=== PATIENT | female | born 1965 | race Caucasian/White ===

== ENCOUNTER → 2017-03-25 | Outpatient (CLI) | payer OTHER ==
[~2017-03-25] MED LIST: PHENERGAN 25MG.25 M1 PO
--- NOTE | 2017-03-25 08:57 | RADIOLOGY REPORT PS360 ---
HIP LT 2-3V W/PELVIS IF PERFOR HISTORY: LEFT HIP PAIN ORDERING PHYSICIAN: Petr Treviño MD PATIENT AGE: 51 years COMPARISON: 12/21/2015 FINDINGS: No fracture or dislocation is evident. No significant degenerative change. No lytic or blastic change. Unremarkable soft tissues. Minimal hypertrophic changes are present along the greater trochanter nonspecific IMPRESSION: No acute finding. No significant change Minimal hypertrophic change along the greater curve
== END ==
LOC: RAD 07:23
DX: M25.552 Pain in left hip (principal)

== ENCOUNTER 2017-05-22 18:06 | Emergency (ER) | payer OTHER ==
[~2017-05-22] VITALS: Ht 162.6 cm; Wt 106.6 kg
--- NOTE | 2017-05-22 19:45 | Urgent Treatment Center Report ---
History of Present Issue Date/Time Seen by Provider 05/22/171944 Visit Reason Pt arrived:Walked Presenting Problem:PT C/O OF SORE THROAT, LOSING HER VOICE, COUGH, AND CHEST CONGESTION X'S 2 WKS Location if Accident: Onset of symptoms date/time:/ or onset unknown for:MEDICAL HX UNKNOWN Have you (or family members/close friends) recently traveled outside the [place]? N If Yes, where/when: Have you had exposure to infectious disease within the past month? TB? Other? Specify: c/o sore throat, cough and hoarse voice. "I am not sure if this is laryngitis or strep". Cough started last night. Coughed most of the night. Sore throat and lack of voice new today. Hasn't taken or tried anything for symptoms. Cough described as "dry". Denies fever, aches, SOA, wheezing. No known sick contacts. Source patient Exam Limitations no limitations ALLERGIES Coded Allergies: No Known Allergies (05/12/16) Home Medications Active Scripts Promethazine Hydrochloride (Phenergan 25MG Tab) 25 MG PO Q6H PRN #10 Prov: 06/04/09 History Medical History General CAD? No Angina: No MT: No Hypertension? Yes Hyperlipidemia? No CHF? No DVT? No PE? No COPD? No Asthma? No Anemia? No GERD? No Gastric ulcers? No GI Bleed? No Hernia? No Thyroid Problems? No Hypothyroidism? No CVA? No Seizures? No Diabetes? No Renal Insuffiency? No UTI? No Stones? No BPH? No GB Disease: No Asplenia? No Hepatitis? No Sickle Cell Disease? No Migraines? No Cataracts? No Glaucoma? No MRSA? No HIV? No TB? No Anxiety? No Depression? No Cancer? No More? No Immunization HX DT/Tetanus > 10 YRS Flu [id number] Pneumonia NEVER Surgical Hx Previous Surgery?Y C SECTION X 2 Hysterect [employer] Hx LMP N/A Family History Family HX Diabetes Yes CAD Yes Hypertension Yes Hyperlipidemia Yes Cancer Yes TB No Social History Smoking Hx Smoker: Never Smoker Tobacco: No Packs/day 1 1/2 - 2 Packs Alcohol Alcohol: No Review of Systems All Other Systems Reviewed and Negative Constitutional see HPI, denies malaise Eyes denies drainage ENT see HPI. denies: ear pain, ear discharge, nose discharge, nose congestion, throat swelling. Respiratory see HPI Cardiovascular denies chest pain Gastrointestinal denies no symptoms reported Musculoskeletal denies joint pain Skin denies rash Psychiatric/Neurological denies headache Physical Exam Vital Signs Vital Signs Date Time Temp Pulse Resp B/P Pulse O2 O2 Flow FiO2 Ox Delivery Rate 05/22 1919 98.1 69 20 139/79 98 General Appearance normal appearance, no apparent distress Eye Exam - bilateral eye normal exam Ear, Nose, Throat normal ENT inspection (x/ very hoarse/strained voice) Neck non-tender, supple, full range of motion Respiratory Status Yes: trachea midline, chest symmetrical, non productive cough (very dry cough). No: respiratory distress, tender on palpation, use of accessory muscles, pain on inspiration, pain on expiration. Lung Sounds anterior: lungs clear. posterior: lungs clear. bilateral: lungs clear. Cardiovascular regular rate/rhythm, no peripheral edema, no murmur Neurologic alert, oriented x 3 Mental status normal mood/affect Skin normal color, warm/dry Lymphatic no adenopathy Medical Decision Making LABS/Meds/Orders Pt receiving controlled substance in ED? No Results/Orders Laboratory Tests 05/22/171923: Group A Strep Screen NOT DETECTED Orders Procedure Date/time Status [facility] STREP SCREEN 05/22 1924 Complete Departure Departure Time of Disposition 2014 Disposition DC Home or Self Care(routine) Clinical Impression Primary Impression: Laryngitis Secondary Impressions: Cough Condition STABLE Referrals [facility] DAVISON,Petr (Family) IMMEDIATELY for new or worsening symptoms OR no noticeable improvement over the next 72 hours. 911 for difficulty breathing or swallowing. Patient Instructions DI for Cough -- Adult, DI for Laryngitis Additional Instructions * No sign of bacterial infection. Likely viral. Virus can take 7-14 days to run their course * Monitor Temp. FU if fever develops * Encourage fluids, water, gatorade, powerade, pedialyte if infant/toddler/child * The less you talk, the faster your voice comes back but often, as virus improves, so does voice * warm salt water gargles * warm fluids * sore throat lozenges * sleep elevated * humidifier/vaporizer * Tessalon Perles will not cause drowsiness but use at bedtime to help stop cough so that you can get some rest * * Your throat swab was sent for culture. Those results are typically sent to your primary care. Be sure to follow up in 2-3 days if no improvement so they can review those results and treat if necessary. If you don't have primary care, I recommend you get one but in the mean time, you will have to return to a walk in clinic. Discharge Counseling Counseled pt/family regarding diagnosis, test results, medications/RX, home care, follow up needs Prescriptions Current Visit Scripts Benzonatate 200 MG PO TIDP PRN cough #21 SGL at 2017
--- NOTE | 2017-05-22 19:45 | Urgent Treatment Center Report ---
History of Present Issue Date/Time Seen by Provider 05/22/171944 Visit Reason Pt arrived:Walked Presenting Problem:PT C/O OF SORE THROAT, LOSING HER VOICE, COUGH, AND CHEST CONGESTION X'S 2 WKS Location if Accident: Onset of symptoms date/time:/ or onset unknown for:MEDICAL HX UNKNOWN Have you (or family members/close friends) recently traveled outside the [place]? N If Yes, where/when: Have you had exposure to infectious disease within the past month? TB? Other? Specify: c/o sore throat, cough and hoarse voice. "I am not sure if this is laryngitis or strep". Cough started last night. Coughed most of the night. Sore throat and lack of voice new today. Hasn't taken or tried anything for symptoms. Cough described as "dry". Denies fever, aches, SOA, wheezing. No known sick contacts. Source patient Exam Limitations no limitations ALLERGIES Coded Allergies: No Known Allergies (05/12/16) Home Medications Active Scripts Promethazine Hydrochloride (Phenergan 25MG Tab) 25 MG PO Q6H PRN #10 Prov: 06/04/09 History Medical History General CAD? No Angina: No DC: No Hypertension? Yes Hyperlipidemia? No CHF? No DVT? No PE? No COPD? No Asthma? No Anemia? No GERD? No Gastric ulcers? No GI Bleed? No Hernia? No Thyroid Problems? No Hypothyroidism? No CVA? No Seizures? No Diabetes? No Renal Insuffiency? No UTI? No Stones? No BPH? No GB Disease: No Asplenia? No Hepatitis? No Sickle Cell Disease? No Migraines? No Cataracts? No Glaucoma? No MRSA? No HIV? No TB? No Anxiety? No Depression? No Cancer? No More? 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 denies: ear pain, ear discharge, nose discharge, nose congestion, throat swelling. Respiratory see HPI Cardiovascular denies chest pain Gastrointestinal denies no symptoms reported Musculoskeletal denies joint pain Skin denies rash Psychiatric/Neurological denies headache Physical Exam Vital Signs Vital Signs Date Time Temp Pulse Resp B/P Pulse O2 O2 Flow FiO2 Ox Delivery Rate 05/22 1919 98.1 69 20 139/79 98 General Appearance normal appearance, no apparent distress Eye Exam - bilateral eye normal exam Ear, Nose, Throat normal ENT inspection (x/ very hoarse/strained voice) Neck non-tender, supple, full range of motion Respiratory Status Yes: trachea midline, chest symmetrical, non productive cough (very dry cough). No: respiratory distress, tender on palpation, use of accessory muscles, pain on inspiration, pain on expiration. Lung Sounds anterior: lungs clear. posterior: lungs clear. bilateral: lungs clear. Cardiovascular regular rate/rhythm, no peripheral edema, no murmur Neurologic alert, oriented x 3 Mental status normal mood/affect Skin normal color, warm/dry Lymphatic no adenopathy Medical Decision Making LABS/Meds/Orders Pt receiving controlled substance in ED? No Results/Orders Laboratory Tests 05/22/171923: Group A Strep Screen NOT DETECTED Orders Procedure Date/time Status [facility] STREP SCREEN 05/22 1924 Complete Departure Departure Time of Disposition 2014 Disposition DC Home or Self Care(routine) Clinical Impression Primary Impression: Laryngitis Secondary Impressions: Cough Condition STABLE Referrals [facility] DAVISON,ePtr (Family) IMMEDIATELY for new or worsening symptoms OR no noticeable improvement over the next 72 hours. 911 for difficulty breathing or swallowing. Patient Instructions DI for Cough -- Adult, DI for Laryngitis Additional Instructions * No sign of bacterial infection. Likely viral. Virus can take 7-14 days to run their course * Monitor Temp. FU if fever develops * Encourage fluids, water, gatorade, powerade, pedialyte if infant/toddler/child * The less you talk, the faster your voice comes back but often, as virus improves, so does voice * warm salt water gargles * warm fluids * sore throat lozenges * sleep elevated * humidifier/vaporizer * Tessalon Perles will not cause drowsiness but use at bedtime to help stop cough so that you can get some rest * * Your throat swab was sent for culture. Those results are typically sent to your primary care. Be sure to follow up in 2-3 days if no improvement so they can review those results and treat if necessary. If you don't have primary care, I recommend you get one but in the mean time, you will have to return to a walk in clinic. Discharge Counseling Counseled pt/family regarding diagnosis, test results, medications/RX, home care, follow up needs Prescriptions Current Visit Scripts Benzonatate 200 MG PO TIDP PRN cough #21 SGL at 2017
[2017-05-22] MEDS ORDERED: BENZONATATE200 MG PO (20:17)
[2017-05-22 20:26] VITALS: BP 132/80
== END 2017-05-22 20:27 | disposition home or self-care (01) ==
LOC: UTC 18:06
DX: J04.0 Acute laryngitis (principal); R05 Cough; I10 Essential (primary) hypertension